=== PATIENT | male | born 1975 | race Caucasian/White ===

== ENCOUNTER 2017-01-25 10:07 | Inpatient (IN) | payer SELFPAY ==
[2017-01-25] MEDS: NS 1000 ML 1,000 ML IV SCH (10:15)
[2017-01-25] MEDS ORDERED: PEPCID 20 MG IV PREMIX* 20 MG/50 ML BAG IV ONE ×2 (10:17→10:19)
[2017-01-25] MEDS ORDERED: MORPHINE SULFATE INJ 4 MG ONE (10:17)
[2017-01-25] MEDS ORDERED: ZOFRAN INJ 4 MG VIAL ONE ×2 (10:17→10:42)
[2017-01-25] MEDS ORDERED: NS 1000 ML 1,000 ML ONE (10:17)
[2017-01-25] MEDS ORDERED: ASPIRIN 81 MG CHEWTAB ONE (10:18)
[2017-01-25] MEDS ORDERED: ZOFRAN INJ 4 MG VIAL IVP ONE ×2 (10:18→10:42)
[2017-01-25] MEDS ORDERED: MORPHINE SULFATE INJ 4 MG IVP ONE (10:19)
--- NOTE | 2017-01-25 10:28 | DR.CP ---
HPI - Time Seen Time seen: 10:10 - PCP Primary Care Physician: CHRISTIAN PERALES - HPI Comment HPI Comment: PATIENT IN ED DIAPHORECTIC WITH LOWER SUBSTERNAL CHEST PRESURE AND EPIGASTRIC PAIN. HE FEEL WEAK AND IS NAUSEATED. PAIN IS NON RADIATING. NO FEVER. FAMILY HISTORY OF HEART DISEASE. DID NOT TAKE ANY MEDICATION BEFORE COMING. - Complaint Chief Complaint Doctor Comments: CHEST PAIN/EPIGASTRIC PAIN SINCE 02:OOAM TODAY. Chief Complaint:: PT. C/O SEVERE CHEST PAIN. PT. DESCRBIES THE PAIN BURNING IN NATURE AND MORE NOTED TO BE IN THE EPIGASTRIC AREA. PT. STATES THE PAIN BEGAN AT 0200 AND HAS BEEN CONSISTENT. PT. IS DIAPHORETIC. - Reviewed Nurses Notes Review: Yes - Source History Provided: Patient - Mode of Arrival Mode of Arrival: Ambulatory - Timing Onset of Chief Complaint: 01/25/17 Came on: Suddenly Pain: Present Now - Duration Duration: Constant Duration: Hours - Location Chest Pain Radiation Location: None - Context Onset: At rest Cardiac Risk Factors: None PE Risk Factors: None History of: None Prehospital Care: None - Quality Quality: Sharp - Severity Severity: Moderate - Modifying Factors Worsens: Nothing Impoves: Nothing - Associated Signs and Symptoms Associated Signs and Symptoms: Shortness of Breath, Diaphoresis PMH - PMH Past Medical History: No Past Surgical History: Yes Surgical History: Other - Family History History of Family Medical Conditions: Yes Family Medical History: Cancer, [place], Coronary Artery Disease - Social History Does patient currently use any type of tobacco product: No Have you used tobacco products in the last 12 months: No Type of Tobacco Use: None Does any household member use tobacco: No Alcohol Use: None Do you use any recreational Drugs:: No Lives With: Spouse Lives Where: Home - infectious screening In the last 2 months have you had wt loss of >10#?: NO Have you had fever, night sweats or hemotysis?: No Have you traveled outside the country in the last 6 months?: No Isolation: Standard ROS - Review of Systems Constitutional: Diaphoresis, Weakness, Fatigue. negative: Chills, Fever Eyes: No Symptoms Reported. negative: Eye Pain, Discharge ENTM: No Symptoms Reported. negative: Ear Pain, Nose Discharge, Nose Congestion , Throat Pain Respiratoy: Short of Breath. negative: Productive Cough, Non-Productive Cough, Wheezing, Hemoptysis Cardiovascular: Chest Pain (LOWER SUBSTERNAL). negative: Edema, Palpitations Gastrointestinal/Abdominal: Abdominal Pain (EPIGASTRIC), Nausea Genitourinary: No Symptoms Reported. negative: Dysuria, Frequency, Hematuria Neurological: Weakness. negative: Headache, Dizziness Musculoskeletal: Muscle Pain Integumentary: Other (DIAPHORESIS) Hematologic/Lymphatic: No Symptoms Reported Endocrine: No Symptoms Reported All Other Systems: Reviewed and Negative PE - Vitals Vitals: Temperature 97.7 F Pulse Rate [Apical] 72 Pulse Rate 82 Respiratory Rate 22 Blood Pressure [Right Arm] 170/102 Blood Pressure 196/126 O2 Sat by Pulse Oximetry 100 - General Limitations: No Limitations General Appearance: Alert - Head Head Exam: Normal Inspection - Eyes Eye exam: Normal Appearance - ENT ENT Exam: Normal External Ear Exam - Chest Chest Inspection: Symmetric Chest Wall Rise - Respiratory Respiratory Exam: Normal Lung Sounds Bilat Respiratory Exam: Bilateral Clear to Auscultation - Cardiovascular Cardiovascular Exam: Regular Rate, Normal Rhythm, Normal Heart Sounds - Abdominal Exam Abdominal Exam: Normal Inspection, Normal Bowel Sounds - Extremities Extremities Exam: Normal Inspection - Back Back Exam: Normal Inspection - Neurologic Neurological Exam: Alert, Oriented X3, CN II-XII Intact, Normal Gait, Reflexes Normal. negative: Motor Sensory Deficit - Psychiatric Psychiatric Exam: Anxious - Skin Skin Exam: Pallor MDM - Additional Information Additional Information Obtained From: Family - Differential Diagnosis Differential Diagnosis: Angina, Chest Wall Pain, Cholelithasis, Esophageal Reflux/Spasm, Gastritis, Myocardial Infarction, Pericarditis, Pleuritis, Pancreatitis, Pneumonia, Pneumothorax, Pulmonary Embolus Course - Treatment Treatment: SEE ORDERS - Consultation Consultation Comments: DISCUSS PATIENT WITH DR. ALCALA. HE WILL ADMIT PATIENT. - Education/Counseling Education/Counseling: Patient, Family, Education Educated On: Treatment, Diagnosis ROR - Labs Reviewed Laboratory Results Reviewed?: Yes Result Diagrams: 01/25/17 10:20 01/25/17 10:20 - XRAY XRAY Interpreted by: Radiologist XRAY Findings: REPORT DISCUSS WITH PATIENT. - EKG Rhythm: NSR (EKG NOTED.) - Diagnosis Discharge Problem: Epigastric pain, Helicobacter pylori antibody positive Chest pain Qualifiers: Chest pain type: other chest pain Qualified Code(s): R07.89 - Other chest pain ; R07.8 - Other chest pain - Discharge Plan Disposition: 09 ADMITTED INPATIENT Condition: Stable - Follow ups/Referrals - Instructions
[2017-01-25 10:34] LABS: BASOPHILS # (AUTO) 0.1 X10^3/uL (0.0-0.1); EOSINOPHILS # (AUTO) 0.1 x10^3/uL (0.0-0.2); EOSINOPHILS % (AUTO) 1.4 % (0.9-2.9); HEMOGLOBIN 16.5 g/dL (13.5-18.0); LYMPHOCYTES # (AUTO) 1.3 X10^3/uL (1.3-2.9); LYMPHOCYTES % (AUTO) 16.4 % (21.0-51.0); MEAN CORPUSCULAR HEMOGLOBIN 32.3 pg (27.0-34.0); MEAN CORPUSCULAR HGB CONC 35.8 g/dL (33.0-35.0); MEAN CORPUSCULAR VOLUME 90.2 fL (80.0-100.0); MEAN PLATELET VOLUME 7.2 fL (7.4-11.0); MONOCYTES # (AUTO) 0.6 x10^3/uL (0.3-0.8); MONOCYTES % (AUTO) 7.2 % (0.0-13.0); NEUTROPHILS # (AUTO) 5.9 x10^3/uL (2.2-4.8); PLATELET COUNT 256 X10^3/uL (150.0-450.0)
[2017-01-25] MEDS ORDERED: TORADOL 30 MG VIAL IVP ONE (10:40)
[2017-01-25] MEDS ORDERED: TORADOL 30 MG VIAL ONE (10:41)
[2017-01-25] MEDS ORDERED: DILAUDID INJ ONE (10:41)
[2017-01-25] MEDS ORDERED: DILAUDID INJ IM ONE (10:42)
[2017-01-25 10:47] LABS: BLOOD UREA NITROGEN 18 mg/dL (7-18); CALCIUM 8.9 mg/dL (8.5-10.1); CARBON DIOXIDE 28.3 mmol/L (21-32); CHLORIDE 104 mmol/L (98-107); CREATININE 1.38 mg/dL (0.70-1.30); GLUCOSE 104 mg/dL (65-99); SODIUM 140 mmol/L (136-145); TROPONIN I < 0.02 ng/mL (0-1.5); eGFR BLACK RACES > 60 (>60); eGFR NON BLACK RACES > 60 (>60)
--- NOTE | 2017-01-25 10:52 | RAD ---
HISTORY: Chest pain. Study: Chest one view Comparison: None. Findings: The trachea is midline. The cardiac silhouette is enlarged. The lungs are clear without focal infi ltrate or effusion. The bony thorax is unremarkable. IMPRESSION: 1. No acute pulmonary abnormality. 2. Cardiomegaly. Reported By:
[2017-01-25 10:54] LABS: B-TYPE NATRIURETIC PEPTIDE 31.2 pg/mL (0-79)
[2017-01-25] MEDS ORDERED: DILAUDID INJ IVP ONE (10:56)
[2017-01-25 11:00] LABS: AMYLASE 53 Units/L (25-115); LIPASE 127 Units/L (73-393)
[2017-01-25] MEDS ORDERED: ASPIRIN 81 MG CHEWTAB PO SCH (11:00)
[2017-01-25 11:10] LABS: ALANINE AMINOTRANSFERASE 22 Units/L (12-78); ALKALINE PHOSPHATASE 83 Units/L (46-116); ASPARTATE AMINO TRANSFERASE 23 Units/L (15-37); CKMB % 2.2 % (<4); CREATINE KINASE 254 Units/L (39-308); TOTAL PROTEIN 8.2 g/dL (6.4-8.2)
[2017-01-25 11:12] LABS: CREATINE KINASE MB 5.6 ng/mL (0-4.0)
[2017-01-25 11:18] LABS: PLATELET MORPHOLOGY COMMENT NORMAL (NORMAL)
[2017-01-25] MEDS ORDERED: NITROSTAT SL PRN (12:32)
[2017-01-25] MEDS ORDERED: ZOFRAN INJ 4 MG VIAL IVP PRN (12:35)
--- NOTE | 2017-01-25 12:57 | US ---
HISTORY: Severe epigastric pain Study: Right upper quadrant ultrasound Comparison: None Technique: Multiple grayscale sonographic images were obtained. Findings: The liver was normal in size and configuration and without focal space-occupying disease. Multiple g allstones are present within the gallbladder. Gallbladder wall thickness was normal. The common duct measured 5.5 millimeters. The pancreas was obscured by overlying bowel gas. The right kidney measur ed 9.8 x 5.4 x 5 centimeters and demonstrated no solid masses, hydronephrosis, stones, or perinephri c fluid collections. IMPRESSION: Cholelithiasis without sonographic evidence for cholecystitis. If cholecystitis is a clinical consid eration nuclear medicine biliary scan may be of further diagnostic value. Reported By:
[2017-01-25 14:10] VITALS: BMI 35.7
[2017-01-25 17:32] LABS: CREATINE KINASE 180 Units/L (39-308); TROPONIN I < 0.02 ng/mL (0-1.5)
[2017-01-25] MEDS: LEVAQUIN PREMIX IV 750 MG 750 MG/150 ML BAG IV SCH (18:02)
[2017-01-25 18:32] LABS: CKMB % 2.8 % (<4)
--- NOTE | 2017-01-25 18:49 | DR.H&P ---
H&P - History & Physical for Day of: H&P Date: 01/25/17 - Chief Complaint Chief Complaint: CHEST PAIN, EPIGASTRIC PAIN - Allergies Allergies/Adverse Reactions: Allergies Allergy/AdvReac Type Severity Reaction Status Date / Time shrimp Allergy Verified 01/25/17 10:08 SEAFOOD Allergy Uncoded 01/25/17 10:08 - History of Present Illness History of Present Illness: mISTER Reese IS A 42-YEAR-OLD WHITE MALE WHO WAS ADMITTED ADMISSION FROM THE EMERGENCY ROOM AFTER PRESENTING WITH COMPLAINTS OF CHEST PAIN, EPIGASTRIC PAIN. mISTER Reese IS A REGULAR PATIENT OF dR. Penelope Murillo WITH A PAST MEDICAL HISTORY OF SEVERE LUMBAR SACRAL DEGENERATIVE DISC DISEASE. pATIENT DENIES ANY CARDIAC HISTORY. pATIENT HAD ekg AND CARDIAC ENZYMES IN THE EMERGENCY ROOM. pATIENT'S GALLBLADDER ULTRASOUND REVEALED CHOLELITHIASIS. pLAN TO ADMIT FOR SURGICAL CONSULT AND PAIN CONTROL. - Past Medical History Past Medical History: Arthritis - Past Surgical History Surgical History: Other - Family History Family Medical History: Cancer, [place], Hypertension - Social History Does patient currently use any type of tobacco product: No Have you used tobacco products in the last 12 months: No Type of Tobacco Use: None Does any household member use tobacco: No Alcohol Use: None Drug Use: None - Medications Home Medications: NK [NK] 01/25/17 [History Confirmed 01/25/17] - Review of Systems Constitutional: Weakness Eyes: No Symptoms Reported ENT: No Symptoms Reported Respiratory: No Symptoms Reported Cardiovascular: Chest Pain Gastrointestinal: Nausea Genitourinary: No Symptoms Reported Musculoskeletal: Back Pain Skin: No Symptoms Reported Neurological: No Symptoms Reported - Physical Exam Vital Signs: Temperature 97.4 F Pulse Rate [Apical] 67 Respiratory Rate 18 Blood Pressure [Right Arm] 136/91 O2 Sat by Pulse Oximetry 96 Oriented: Normal Eyes: Normal Ear: Normal Nose: Normal Throat: Normal Respiratory: Clear Throughout Cardiovascular: Normal : Normal Auscultation: Bowel Sounds: Normal Palpation: Normal Tenderness: RUQ, Epigastric Skin: Normal Musculoskeletal: Back:Thoracic, Back:Lumbar Speech Pattern: Clear, Appropriate - Assessment/Plan (1) Epigastric pain Status: Acute Plan: ADMIT, IV HYDRATION, PAIN AND NAUSEA CONTROL. CONSULT SURGEON, NPO AFTER MIDNIGHT (2) Cholelithiasis Qualifiers: Cholelithiasis location: C Cholecystitis presence: C Cholangitis presence : C Cholecystitis acuity: C Cholangitis acuity: C Biliary obstruction: B Status: Acute (3) Degenerative lumbar disc Status: Acute
[2017-01-25] MEDS: MORPHINE SULFATE INJ 4 MG IVP PRN (19:19)
[2017-01-25] MEDS: PEPCID 20 MG IV PREMIX* 20 MG/50 ML BAG IV SCH (20:51)
[2017-01-26] LABS: CKMB % 3.6 % (<4); CREATINE KINASE 156 Units/L (39-308); TROPONIN I < 0.02 ng/mL (0-1.5)
[2017-01-26 00:03] LABS: CREATINE KINASE MB 5.6 ng/mL (0-4.0)
[2017-01-26 05:26] LABS: BASOPHILS % (AUTO) 0.5 % (0.2-1.0); EOSINOPHILS # (AUTO) 0.1 x10^3/uL (0.0-0.2); EOSINOPHILS % (AUTO) 1.9 % (0.9-2.9); HEMATOCRIT 41.3 % (42.0-54.0); HEMOGLOBIN 14.7 g/dL (13.5-18.0); LYMPHOCYTES # (AUTO) 1.7 X10^3/uL (1.3-2.9); LYMPHOCYTES % (AUTO) 24.3 % (21.0-51.0); MEAN CORPUSCULAR HEMOGLOBIN 32.3 pg (27.0-34.0); MEAN CORPUSCULAR HGB CONC 35.6 g/dL (33.0-35.0); MEAN CORPUSCULAR VOLUME 90.8 fL (80.0-100.0); MEAN PLATELET VOLUME 7.3 fL (7.4-11.0); MONOCYTES # (AUTO) 0.7 x10^3/uL (0.3-0.8); MONOCYTES % (AUTO) 9.3 % (0.0-13.0); NEUTROPHILS # (AUTO) 4.5 x10^3/uL (2.2-4.8); PLATELET COUNT 219 X10^3/uL (150.0-450.0); RED BLOOD COUNT 4.54 X10^6/uL (4.7-6.0); RED CELL DISTRIBUTION WIDTH 13.9 % (11.6-16.5); WHITE BLOOD COUNT 7.1 X10^3/uL (3.6-10.0)
[2017-01-26 05:39] LABS: ALANINE AMINOTRANSFERASE 23 Units/L (12-78); ALBUMIN 3.3 g/dL (3.4-5.0); ALKALINE PHOSPHATASE 65 Units/L (46-116); ASPARTATE AMINO TRANSFERASE 15 Units/L (15-37); BLOOD UREA NITROGEN 14 mg/dL (7-18); CALCIUM 8.6 mg/dL (8.5-10.1); CARBON DIOXIDE 32.8 mmol/L (21-32); CHLORIDE 103 mmol/L (98-107); CHOLESTEROL 144 mg/dL (0-200); COR CA(FOR HYPOALB) 9.2 mg/dL (8.5-10.1); CREATININE 1.13 mg/dL (0.70-1.30); GLUCOSE 92 mg/dL (65-99); HDL CHOLESTEROL 36 mg/dL (40-60); SODIUM 142 mmol/L (136-145); TOTAL PROTEIN 6.9 g/dL (6.4-8.2); TRIGLYCERIDES 96 mg/dL (0-150); eGFR BLACK RACES > 60 (>60); eGFR NON BLACK RACES > 60 (>60)
[2017-01-26] MEDS: ASPIRIN PO SCH (08:13)
[2017-01-26] MEDS: LEVAQUIN PREMIX IV 750 MG 750 MG/150 ML BAG IV SCH (08:22)
[2017-01-26] MEDS: PEPCID 20 MG IV PREMIX* 20 MG/50 ML BAG IV SCH ×2 (08:23→20:10)
[2017-01-26] MEDS: MORPHINE SULFATE INJ 4 MG IVP PRN ×2 (09:23→20:10)
[2017-01-26] MEDS ORDERED: LR 1000 ML IV 1,000 ML IV ONE (14:07)
[2017-01-26] MEDS ORDERED: DIPRIVAN VIAL 20 ML ONE (14:26)
[2017-01-26] MEDS ORDERED: DIPRIVAN VIAL 10 ML ONE (14:35)
[2017-01-26] MEDS: NS 1000 ML 1,000 ML IV SCH (17:38)
[2017-01-27 05:22] LABS: ALANINE AMINOTRANSFERASE 22 Units/L (12-78); ALBUMIN 3.4 g/dL (3.4-5.0); ALKALINE PHOSPHATASE 71 Units/L (46-116); ASPARTATE AMINO TRANSFERASE 14 Units/L (15-37); BLOOD UREA NITROGEN 11 mg/dL (7-18); CARBON DIOXIDE 33.6 mmol/L (21-32); CHLORIDE 105 mmol/L (98-107); GLUCOSE 100 mg/dL (65-99); SODIUM 141 mmol/L (136-145); eGFR BLACK RACES > 60 (>60); eGFR NON BLACK RACES > 60 (>60)
[2017-01-27 05:26] LABS: BASOPHILS % (AUTO) 0.4 % (0.2-1.0); EOSINOPHILS # (AUTO) 0.1 x10^3/uL (0.0-0.2); EOSINOPHILS % (AUTO) 1.5 % (0.9-2.9); HEMATOCRIT 41.8 % (42.0-54.0); LYMPHOCYTES # (AUTO) 1.7 X10^3/uL (1.3-2.9); LYMPHOCYTES % (AUTO) 23.9 % (21.0-51.0); MEAN CORPUSCULAR HEMOGLOBIN 32.6 pg (27.0-34.0); MEAN CORPUSCULAR HGB CONC 35.9 g/dL (33.0-35.0); MEAN CORPUSCULAR VOLUME 90.9 fL (80.0-100.0); MEAN PLATELET VOLUME 7.4 fL (7.4-11.0); MONOCYTES # (AUTO) 0.5 x10^3/uL (0.3-0.8); MONOCYTES % (AUTO) 7.6 % (0.0-13.0); NEUTROPHILS # (AUTO) 4.7 x10^3/uL (2.2-4.8); NEUTROPHILS % (AUTO) 66.6 % (42.0-75.0); PLATELET COUNT 229 X10^3/uL (150.0-450.0); RED CELL DISTRIBUTION WIDTH 14.3 % (11.6-16.5)
[2017-01-27] MEDS: LEVAQUIN PREMIX IV 750 MG 750 MG/150 ML BAG IV SCH (09:00)
[2017-01-27] MEDS: ASPIRIN PO SCH (09:00)
[2017-01-27] MEDS: PEPCID 20 MG IV PREMIX* 20 MG/50 ML BAG IV SCH ×2 (09:00→21:35)
[2017-01-27] MEDS: MORPHINE SULFATE INJ 4 MG IVP PRN (10:45)
[2017-01-27] MEDS ORDERED: XYLOCAINE 1 % (PLAIN) ONE (13:42)
[2017-01-27] MEDS ORDERED: MARCAINE 0.25% WITH EPI IJ ONE (13:42)
[2017-01-27] MEDS ORDERED: NS 50 ML IV + SPIKE MINIBAG* 100 ML IV ONE (13:52)
[2017-01-27] MEDS ORDERED: LR 1000 ML IV 1,000 ML IV ONE (13:52)
[2017-01-27] MEDS ORDERED: ANCEF VIAL 1 GM ONE (13:53)
[2017-01-27] MEDS ORDERED: FENTANYL INJ 250 mcg ONE (14:09)
[2017-01-27] MEDS ORDERED: DILAUDID INJ ONE (14:09)
[2017-01-27] MEDS ORDERED: NS IRRIGATION 3000 ML 3,000 ML IR ONE (14:48)
[2017-01-27] MEDS ORDERED: DILAUDID INJ IVP PRN (15:11)
[2017-01-27] MEDS ORDERED: ZOFRAN INJ 4 MG VIAL IVP PRN (15:11)
[2017-01-27] MEDS ORDERED: REGLAN INJ 10 MG VIAL IVP PRN (15:11)
[2017-01-27] MEDS ORDERED: PHENERGAN INJ 25 MG IVP PRN (15:11)
[2017-01-27] MEDS ORDERED: BENADRYL INJ 50 MG VIAL IVP PRN (15:11)
[2017-01-27] MEDS ORDERED: MORPHINE SULFATE INJ 2 MG IVP PRN (15:51)
--- NOTE | 2017-01-27 18:08 | PCM.PROG ---
Progress Note - Progress Note for Day of Date: 01/26/17 - Subjective Subjective: NPO FOR EGD THIS AFTERNOON. PAIN AND NAUSEA CONTROL, DR UNDERWOOD CONSULTED FOR VI KABA - Past Medical Family Social History Past Med/Fam/Surg Hx: No changes since H&P Allergies: Allergies shrimp Allergy (Verified 01/25/17 10:08) SEAFOOD Allergy (Uncoded 01/25/17 10:08) - Review of Systems ROS: No change since H&P - Vital Signs and I&O's Vital Signs: Temperature 97.8 F Pulse Rate [Apical] 79 Pulse Rate 63 Respiratory Rate 18 Blood Pressure [Right Arm] 130/81 Blood Pressure 111/74 O2 Sat by Pulse Oximetry 95 Intake and Output: Intake & Output 01/25/17 01/26/17 01/27/17 01/28/17 11:59 11:59 11:59 11:59 Intake Total 490 645 0 Output Total 950 Balance 490 645 -950 - Physical Exam Oriented: Normal Eyes: Normal Ear: Normal Nose: Normal Throat: Normal Respiratory: Normal Cardiovascular: Normal : Normal Auscultation: Bowel Sounds: Normal Tenderness: RUQ, Epigastric Skin: Normal Musculoskeletal: Back:Thoracic, Back:Lumbar Mood Description: Appropriate Speech Pattern: Clear, Appropriate - Laboratory and Diagnostics Result Diagrams: 01/27/17 03:48 01/27/17 03:48 Labs: Laboratory WBC 7.0 X10^3/uL (3.6-10.0) 01/27/17 03:48 RBC 4.60 X10^6/uL (4.7-6.0) L 01/27/17 03:48 Hgb 15.0 g/dL (13.5-18.0) 01/27/17 03:48 Hct 41.8 % (42.0-54.0) L 01/27/17 03:48 MCV 90.9 fL (80.0-100.0) 01/27/17 03:48 MCH 32.6 pg (27.0-34.0) 01/27/17 03:48 MCHC 35.9 g/dL (33.0-35.0) H 01/27/17 03:48 RDW 14.3 % (11.6-16.5) 01/27/17 03:48 Plt Count 229 X10^3/uL (150.0-450.0) 01/27/17 03:48 Plt Count Comment Adequate (ADEQUATE) 01/25/17 10:20 MPV 7.4 fL (7.4-11.0) 01/27/17 03:48 Neut % 66.6 % (42.0-75.0) 01/27/17 03:48 Lymph % 23.9 % (21.0-51.0) 01/27/17 03:48 [place] % 7.6 % (0.0-13.0) 01/27/17 03:48 Eos % 1.5 % (0.9-2.9) 01/27/17 03:48 Baso % 0.4 % (0.2-1.0) 01/27/17 03:48 Neut # 4.7 x10^3/uL (2.2-4.8) 01/27/17 03:48 Lymph # 1.7 X10^3/uL (1.3-2.9) 01/27/17 03:48 [place] # 0.5 x10^3/uL (0.3-0.8) 01/27/17 03:48 Eos # 0.1 x10^3/uL (0.0-0.2) 01/27/17 03:48 Baso # 0.0 X10^3/uL (0.0-0.1) 01/27/17 03:48 Absolute Nucleated RBC 0.0 /100WBC 01/27/17 03:48 Plt Morphology Comment Normal (NORMAL) 01/25/17 10:20 RBC Morphology Normal (NORMAL) 01/25/17 10:20 D-Dimer 114 ng/mL (0-400) 01/25/17 10:20 Sodium 141 mmol/L (136-145) 01/27/17 03:48 Corrected Sodium TNP 01/27/17 03:48 Potassium 4.3 mmol/L (3.5-5.1) 01/27/17 03:48 Chloride 105 mmol/L (98-107) 01/27/17 03:48 Carbon Dioxide 33.6 mmol/L (21-32) H 01/27/17 03:48 BUN 11 mg/dL (7-18) 01/27/17 03:48 Creatinine 1.20 mg/dL (0.70-1.30) 01/27/17 03:48 Est GFR (MDRD) Af Amer > 60 (>60) 01/27/17 03:48 Est GFR (MDRD) Non-Af > 60 (>60) 01/27/17 03:48 Glucose 100 mg/dL (65-99) H 01/27/17 03:48 Calcium 9.0 mg/dL (8.5-10.1) 01/27/17 03:48 Corrected Calcium TNP 01/27/17 03:48 Total Bilirubin 0.60 mg/dL (0.2-1.0) 01/27/17 03:48 AST 14 Units/L (15-37) L 01/27/17 03:48 ALT 22 Units/L (12-78) 01/27/17 03:48 Alkaline Phosphatase 71 Units/L (46-116) 01/27/17 03:48 Creatine Kinase 156 Units/L (39-308) 01/25/17 23:03 CK-MB (CK-2) 5.6 ng/mL (0-4.0) H* 01/25/17 23:03 CK/CKMB % Calc 3.6 % (<4) 01/25/17 23:03 Troponin I < 0.02 ng/mL (0-1.5) 01/25/17 23:03 B-Natriuretic Peptide 31.2 pg/mL (0-79) 01/25/17 10:20 Total Protein 7.0 g/dL (6.4-8.2) 01/27/17 03:48 Albumin 3.4 g/dL (3.4-5.0) 01/27/17 03:48 Globulin 3.6 g/dL (2.5-4.5) 01/27/17 03:48 Albumin/Globulin Ratio 0.9 Ratio (1.1-2.1) L 01/27/17 03:48 Triglycerides 96 mg/dL (0-150) 01/26/17 04:09 Cholesterol 144 mg/dL (0-200) 01/26/17 04:09 LDL Cholesterol, Calc 89 mg/dL (0-100) 01/26/17 04:09 HDL Cholesterol 36 mg/dL (40-60) L 01/26/17 04:09 Cholesterol/HDL Ratio 4.0 (0.0-5.0) 01/26/17 04:09 Amylase 53 Units/L (25-115) 01/25/17 10:20 Lipase 127 Units/L (73-393) 01/25/17 10:20 H. pylori IgG Antibody Positive (NEGATIVE) A 01/25/17 10:20 Tissue Pathology To follow 01/27/17 15:24 - Plan (1) Epigastric pain Status: Acute Plan: IV HYDRATION, PAIN AND NAUSEA CONTROL. NPO THIS AM FOR EGD THIS AFTERNOON. CONSULT SURGEON, NPO AFTER MIDNIGHT (2) Cholelithiasis Status: Acute Qualifiers: Cholelithiasis location: C Cholecystitis presence: C Cholangitis presence : C Cholecystitis acuity: C Cholangitis acuity: C Biliary obstruction: B Plan: CONSULT KJ FOR LAP SENDY (3) Degenerative lumbar disc Status: Acute
--- NOTE | 2017-01-27 18:11 | PCM.PROG ---
Progress Note - Subjective Subjective: NPO FOR GALL BLADDER SURGERY. PAIN AND NAUSEA CONTROL, DR UNDERWOOD CONSULTED FOR LAP SENDY - Past Medical Family Social History Past Med/Fam/Surg Hx: No changes since H&P Allergies: Allergies shrimp Allergy (Verified 01/25/17 10:08) SEAFOOD Allergy (Uncoded 01/25/17 10:08) - Review of Systems ROS: No change since H&P - Vital Signs and I&O's Vital Signs: Temperature 97.8 F Pulse Rate [Apical] 79 Pulse Rate 63 Respiratory Rate 18 Blood Pressure [Right Arm] 130/81 Blood Pressure 111/74 O2 Sat by Pulse Oximetry 95 Intake and Output: Intake & Output 01/25/17 01/26/17 01/27/17 01/28/17 11:59 11:59 11:59 11:59 Intake Total 490 645 0 Output Total 950 Balance 490 645 -950 - Physical Exam Oriented: Normal Eyes: Normal Ear: Normal Nose: Normal Throat: Normal Respiratory: Normal Cardiovascular: Normal : Normal Auscultation: Bowel Sounds: Normal Tenderness: RUQ, Epigastric Skin: Normal Musculoskeletal: Back:Thoracic, Back:Lumbar Mood Description: Appropriate Speech Pattern: Clear, Appropriate - Laboratory and Diagnostics Result Diagrams: 01/27/17 03:48 01/27/17 03:48 Labs: Laboratory WBC 7.0 X10^3/uL (3.6-10.0) 01/27/17 03:48 RBC 4.60 X10^6/uL (4.7-6.0) L 01/27/17 03:48 Hgb 15.0 g/dL (13.5-18.0) 01/27/17 03:48 Hct 41.8 % (42.0-54.0) L 01/27/17 03:48 MCV 90.9 fL (80.0-100.0) 01/27/17 03:48 MCH 32.6 pg (27.0-34.0) 01/27/17 03:48 MCHC 35.9 g/dL (33.0-35.0) H 01/27/17 03:48 RDW 14.3 % (11.6-16.5) 01/27/17 03:48 Plt Count 229 X10^3/uL (150.0-450.0) 01/27/17 03:48 Plt Count Comment Adequate (ADEQUATE) 01/25/17 10:20 MPV 7.4 fL (7.4-11.0) 01/27/17 03:48 Neut % 66.6 % (42.0-75.0) 01/27/17 03:48 Lymph % 23.9 % (21.0-51.0) 01/27/17 03:48 [place] % 7.6 % (0.0-13.0) 01/27/17 03:48 Eos % 1.5 % (0.9-2.9) 01/27/17 03:48 Baso % 0.4 % (0.2-1.0) 01/27/17 03:48 Neut # 4.7 x10^3/uL (2.2-4.8) 01/27/17 03:48 Lymph # 1.7 X10^3/uL (1.3-2.9) 01/27/17 03:48 [place] # 0.5 x10^3/uL (0.3-0.8) 01/27/17 03:48 Eos # 0.1 x10^3/uL (0.0-0.2) 01/27/17 03:48 Baso # 0.0 X10^3/uL (0.0-0.1) 01/27/17 03:48 Absolute Nucleated RBC 0.0 /100WBC 01/27/17 03:48 Plt Morphology Comment Normal (NORMAL) 01/25/17 10:20 RBC Morphology Normal (NORMAL) 01/25/17 10:20 D-Dimer 114 ng/mL (0-400) 01/25/17 10:20 Sodium 141 mmol/L (136-145) 01/27/17 03:48 Corrected Sodium TNP 01/27/17 03:48 Potassium 4.3 mmol/L (3.5-5.1) 01/27/17 03:48 Chloride 105 mmol/L (98-107) 01/27/17 03:48 Carbon Dioxide 33.6 mmol/L (21-32) H 01/27/17 03:48 BUN 11 mg/dL (7-18) 01/27/17 03:48 Creatinine 1.20 mg/dL (0.70-1.30) 01/27/17 03:48 Est GFR (MDRD) Af Amer > 60 (>60) 01/27/17 03:48 Est GFR (MDRD) Non-Af > 60 (>60) 01/27/17 03:48 Glucose 100 mg/dL (65-99) H 01/27/17 03:48 Calcium 9.0 mg/dL (8.5-10.1) 01/27/17 03:48 Corrected Calcium TNP 01/27/17 03:48 Total Bilirubin 0.60 mg/dL (0.2-1.0) 01/27/17 03:48 AST 14 Units/L (15-37) L 01/27/17 03:48 ALT 22 Units/L (12-78) 01/27/17 03:48 Alkaline Phosphatase 71 Units/L (46-116) 01/27/17 03:48 Creatine Kinase 156 Units/L (39-308) 01/25/17 23:03 CK-MB (CK-2) 5.6 ng/mL (0-4.0) H* 01/25/17 23:03 CK/CKMB % Calc 3.6 % (<4) 01/25/17 23:03 Troponin I < 0.02 ng/mL (0-1.5) 01/25/17 23:03 B-Natriuretic Peptide 31.2 pg/mL (0-79) 01/25/17 10:20 Total Protein 7.0 g/dL (6.4-8.2) 01/27/17 03:48 Albumin 3.4 g/dL (3.4-5.0) 01/27/17 03:48 Globulin 3.6 g/dL (2.5-4.5) 01/27/17 03:48 Albumin/Globulin Ratio 0.9 Ratio (1.1-2.1) L 01/27/17 03:48 Triglycerides 96 mg/dL (0-150) 01/26/17 04:09 Cholesterol 144 mg/dL (0-200) 01/26/17 04:09 LDL Cholesterol, Calc 89 mg/dL (0-100) 01/26/17 04:09 HDL Cholesterol 36 mg/dL (40-60) L 01/26/17 04:09 Cholesterol/HDL Ratio 4.0 (0.0-5.0) 01/26/17 04:09 Amylase 53 Units/L (25-115) 01/25/17 10:20 Lipase 127 Units/L (73-393) 01/25/17 10:20 H. pylori IgG Antibody Positive (NEGATIVE) A 01/25/17 10:20 Tissue Pathology To follow 01/27/17 15:24 - Plan (1) Epigastric pain Status: Acute Plan: IV HYDRATION, PAIN AND NAUSEA CONTROL. EGD LAST PM PER DR CARSON REVEALED GASTRITIS, WILL CONTINUE PPI THERAPY. NPO FOR LAP SENDY TODAY PER DR UNDERWOOD (2) Cholelithiasis Status: Acute Qualifiers: Cholelithiasis location: C Cholecystitis presence: C Cholangitis presence : C Cholecystitis acuity: C Cholangitis acuity: C Biliary obstruction: B Plan: CONSULT KJ FOR LAP SENDY (3) Degenerative lumbar disc Status: Acute
[2017-01-27] MEDS ORDERED: MILK OF MAGNESIA PO SCH (21:00)
[2017-01-27] MEDS ORDERED: COLACE CAP 100 MG PO SCH (21:00)
[2017-01-27] MEDS: NS 1000 ML 1,000 ML IV SCH (21:17)
[2017-01-27] MEDS: PERCOCET TAB 5/325 MG PO PRN (21:18)
[2017-01-28 05:21] LABS: BASOPHILS % (AUTO) 0.4 % (0.2-1.0); EOSINOPHILS # (AUTO) 0.1 x10^3/uL (0.0-0.2); EOSINOPHILS % (AUTO) 0.8 % (0.9-2.9); HEMATOCRIT 42.4 % (42.0-54.0); HEMOGLOBIN 15.1 g/dL (13.5-18.0); LYMPHOCYTES # (AUTO) 1.3 X10^3/uL (1.3-2.9); LYMPHOCYTES % (AUTO) 16.1 % (21.0-51.0); MEAN CORPUSCULAR HEMOGLOBIN 32.2 pg (27.0-34.0); MEAN CORPUSCULAR HGB CONC 35.5 g/dL (33.0-35.0); MEAN CORPUSCULAR VOLUME 90.6 fL (80.0-100.0); MEAN PLATELET VOLUME 7.1 fL (7.4-11.0); MONOCYTES # (AUTO) 0.7 x10^3/uL (0.3-0.8); NEUTROPHILS # (AUTO) 6.3 x10^3/uL (2.2-4.8); NEUTROPHILS % (AUTO) 74.7 % (42.0-75.0); PLATELET COUNT 225 X10^3/uL (150.0-450.0); RED BLOOD COUNT 4.68 X10^6/uL (4.7-6.0); WHITE BLOOD COUNT 8.4 X10^3/uL (3.6-10.0)
[2017-01-28 05:34] LABS: ALANINE AMINOTRANSFERASE 66 Units/L (12-78); ALBUMIN 3.5 g/dL (3.4-5.0); ALKALINE PHOSPHATASE 65 Units/L (46-116); ASPARTATE AMINO TRANSFERASE 52 Units/L (15-37); BLOOD UREA NITROGEN 9 mg/dL (7-18); CALCIUM 8.6 mg/dL (8.5-10.1); CARBON DIOXIDE 33.2 mmol/L (21-32); CHLORIDE 102 mmol/L (98-107); CREATININE 1.22 mg/dL (0.70-1.30); GLUCOSE 93 mg/dL (65-99); SODIUM 140 mmol/L (136-145); TOTAL PROTEIN 7.4 g/dL (6.4-8.2); eGFR BLACK RACES > 60 (>60); eGFR NON BLACK RACES > 60 (>60)
[2017-01-28] MEDS: PEPCID 20 MG IV PREMIX* 20 MG/50 ML BAG IV SCH (09:39)
[2017-01-28] MEDS: LEVAQUIN PREMIX IV 750 MG 750 MG/150 ML BAG IV SCH (09:39)
[2017-01-28] MEDS: ASPIRIN PO SCH (09:39)
[2017-01-28] MEDS: PERCOCET TAB 5/325 MG PO PRN (15:21)
[2017-01-28 16:31] VITALS: BP 129/75
== END 2017-01-28 16:25 | disposition home or self-care (01) | DRG 313 ==
LOC: ER 10:18 → MED/SURG 12:16 → OBSVTOIN 12:16
PROVIDERS: ADMIT Internal Medicine; ATTEND Internal Medicine
PROC: 0DB68ZX Excision of Stomach, Via Natural or Artificial Opening Endoscopic, Diagnostic (ICD-10-PCS; 2017-01-26)
PROC: 0DB38ZX Excision of Lower Esophagus, Via Natural or Artificial Opening Endoscopic, Diagnostic (ICD-10-PCS; principal; 2017-01-26 12:00)
PROC: 0FT44ZZ Resection of Gallbladder, Percutaneous Endoscopic Approach (ICD-10-PCS; 2017-01-27)
DX: R07.89 Other chest pain (principal); R10.13 Epigastric pain; K80.80 Other cholelithiasis without obstruction; B96.81 Helicobacter pylori [H. pylori] as the cause of diseases classified elsewhere; M51.36 Other intervertebral disc degeneration, lumbar region; K44.9 Diaphragmatic hernia without obstruction or gangrene; K20.8 Other esophagitis; K29.00 Acute gastritis without bleeding; K80.18 Calculus of gallbladder with other cholecystitis without obstruction
CPT/HCPCS: 36415; 71010; 76705; 80053; 80061; 82150; 82550; 82553; 83690; 83880; 84484; 85025; 85378; 86677; 93005; 93010; 94760; 96365; 96367; 96374; 96375; 99284; A4222; S0020; S0028; A4217; J0690; J1170; J1885; J1956; J2001; J2270; J2405; J3010; J3490; J7120